=== PATIENT | male | born 1960 | race Caucasian/White ===

== ENCOUNTER → 2017-01-15 | Outpatient (CLI) | payer OTHER ==
[~2017-01-15] MED LIST: APIX1TAB3 PO; HYDR-3419 PO; PRT40 PO
[2017-01-15 12:46] LABS: AST/SGOT 24 U/L (15-37); BLOOD UREA NITROGEN 14 mg/dl (7-18); BUN/CREATININE RATIO 14.8 (10-20); CALCIUM 8.4 mg/dl (8.5-10.1); CARBON DIOXIDE 32 mmol/L (21-32); CHLORIDE 103 mmol/L (98-107); CREATININE 0.95 mg/dl (0.60-1.40); GLUCOSE 93 mg/dl (70-99); POTASSIUM 4.2 mmol/L (3.5-5.1); SODIUM 140 mmol/L (136-145)
[2017-01-15 12:54] LABS: ALB/GLOB RATIO 1.2 (0.9-2); ALKALINE PHOSPHATASE 72 U/L (45-117); ALT/SGPT 47 U/L (12-78); CHOLESTEROL 192 mg/dl (0-200); CHOLESTEROL/HDL RATIO 3.5; HDL CHOLESTEROL 55 mg/dl; LDL CHOLESTEROL CALCULATED 115 mg/dl; TRIGLYCERIDES 108 mg/dl (0-150); VERY LOW DENSITY LIPOPROT CALC 22 mg/dl
== END | disposition home or self-care (01) ==
LOC: C.LABPVFM 09:56
PROVIDERS: ATTEND Nurse Practitioner Family
DX: E78.5 Hyperlipidemia, unspecified (principal)

== ENCOUNTER → 2017-08-07 | Outpatient (CLI) | payer OTHER ==
[2017-08-07 13:21] LABS: ALT/SGPT 55 U/L (12-78); BLOOD UREA NITROGEN 17 mg/dl (7-18); BUN/CREATININE RATIO 17.2 (10-20); CALCIUM 8.9 mg/dl (8.5-10.1); CARBON DIOXIDE 29 mmol/L (21-32); CHLORIDE 104 mmol/L (98-107); CHOLESTEROL 209 mg/dl (0-200); CREATININE 0.97 mg/dl (0.60-1.40); GLUCOSE 94 mg/dl (70-99); POTASSIUM 4.1 mmol/L (3.5-5.1); SODIUM 139 mmol/L (136-145)
[2017-08-07 13:30] LABS: ESTIMATED AVERAGE GLUCOSE 117 mg/dl; HA1C FLAG Normal (Normal)
[2017-08-07 14:03] LABS: ALKALINE PHOSPHATASE 82 U/L (45-117); AST/SGOT 30 U/L (15-37); CHOLESTEROL/HDL RATIO 3.2; HDL CHOLESTEROL 65 mg/dl; LDL CHOLESTEROL CALCULATED 121 mg/dl; TRIGLYCERIDES 117 mg/dl (0-150); VERY LOW DENSITY LIPOPROT CALC 23 mg/dl
== END | disposition home or self-care (01) ==
LOC: C.LABPVFM 09:19
PROVIDERS: ATTEND Nurse Practitioner Family
DX: E78.5 Hyperlipidemia, unspecified (principal); R79.89 Other specified abnormal findings of blood chemistry; R73.03 Prediabetes

== ENCOUNTER → 2018-03-09 | Outpatient (CLI) | payer OTHER ==
[~2018-03-09] MED LIST changes: +OPTIRAY 320 IV PRN
--- NOTE | 2018-03-09 11:35 | DIAGNOSTIC IMAGING REPORT ---
CT ANGIOGRAM OF THE CHEST CLINICAL HISTORY: Cough, chest pain, shortness of breath. COMPARISON STUDY: December 2015 , chest x-ray dated 03/09/2018 TECHNIQUE: Following the IV administration of 113 mL of Optiray-320, CT angiogram of the thorax was performed from the thoracic inlet to the lung bases utilizing the pulmonary embolus protocol. Images are reviewed in the axial, sagittal, and coronal planes. IV contrast was administered without complication. MIP imaging was performed. A dose lowering technique was utilized adhering to the principles of ALARA. CT DOSE: 743.90 mGy.cm FINDINGS: There are mildly enlarged mediastinal and hilar lymph nodes, similar to the preceding examination. There was no evidence of thoracic aortic dilatation. There were no pulmonary artery filling defects to indicate acute pulmonary embolism. No pleural effusions are visualized. There is mild respiratory motion artifact. There is no focal pulmonary consolidation to indicate a pneumonia. There is a stable right lower lobe perifissural nodule of doubtful clinical significance. IMPRESSION: 1. No evidence of acute pulmonary embolism 2. Mild mediastinal and hilar lymphadenopathy, unchanged the preceding study 3. No evidence of focal pulmonary consolidation Electronically signed by: Víctor Klein M.D. 03/09/2018 11:34 AM Dictated Date/Time: 03/09/2018 11:30 AM
== END | disposition home or self-care (01) ==
LOC: C.CTS 10:34
PROVIDERS: ATTEND Physician Assistant
DX: R05 Cough (principal); R09.02 Hypoxemia; R06.02 Shortness of breath

== ENCOUNTER → 2018-03-09 | Outpatient (CLI) | payer OTHER ==
[~2018-03-09] MED LIST changes: -OPTIRAY 320 IV PRN
--- NOTE | 2018-03-09 10:51 | DIAGNOSTIC IMAGING REPORT ---
TWO VIEW CHEST CLINICAL HISTORY: Cough. FINDINGS: PA and lateral chest radiographs are correlated with chest CT dated 12/28/2015. The heart is top normal for projection. Mild emphysema is suspected and chronic interstitial thickening is similar to previous. There is bibasilar atelectasis, left greater than right. No pleural effusion is identified. There is no pneumothorax. The bony thorax appears intact. IMPRESSION: 1. Suspect mild emphysematous change. 2. No airspace consolidation or pleural effusion is identified. Electronically signed by: Arsh Garcia M.D. 03/09/2018 10:49 AM Dictated Date/Time: 03/09/2018 10:47 AM
== END | disposition home or self-care (01) ==
LOC: C.RAD1850 09:57
PROVIDERS: ATTEND Physician Assistant
DX: R06.02 Shortness of breath (principal); R05 Cough

== ENCOUNTER → 2018-03-11 | Outpatient (CLI) | payer OTHER ==
--- NOTE | 2018-03-12 06:04 | SPLIT NIGHT TECHNICIAN REPORT ---
[facility] Split Night Polysomnogram - Plastic Surgery Coordinator Report Study date: 03/11/2018 Referring Physician: Beth Navarro PA-C, PA-C Name: CLARE HORTON Maria Dolores Plastic Surgery Coordinator: HEIDI Long. Date of : 1960 Height: 57 years, Height 6' 1" Sex: Male Weight: 285 lbs Age: 57 BMI: Medications: 37.6 PANTOPRAZOLE 40 MG, CYCLOBENZAPRINE 10 MG, HYDROCODONE-ACETAMINOPHEN 5-325 MG, TRAMADOL 50 MG Patient History 57 yr-old male here for a baseline study. He has a history of excessive daytime sleepiness, coughing, and shortness of breath. His [place] scale is 17. The test was started on room air. ETCO2 testing was not utilized during this study. Room 3 Parameters Monitored NPSG: E1-M2, E2-M1, Fp1-M2, Fp2-M1, F3-M2, F4-M2, F4-M1, C3-M2, C4-M2, C4-M1, O1-M2, O2-M2, O2-M1, T3-M2, T4-M1, P3-M2, P4-M1, CHIN1, CHIN2, HR, EKG, Legs, PFLOW, SNOR, FLOW, CFLOW, Tidal Volume, THOR, ABDO, SpO2, PLTH, CPRESS, ETCO2 Wave, ETCO2, pH SLEEP SUMMARY DATA DIAGNOSTIC TREATMENT Lights Out: 9:36:31 PM 12:34:31 AM Lights On: 12:17:31 AM 5:27:01 AM Total Recording Time (TRT): 161.0 min. 292.5 min. Total Sleep Time (TST): 127.5 min. 260.0 min. NREM Time: 127.5 min. 200.5 min. REM Time: 0.0 min. 59.5 min. Sleep Period Time (SPT): 144.0 min. 286.0 min. Sleep Efficiency (SE): 79 % 89 % Sleep Latency: 17.0 min. 3.5 min. Arousal Index: 104.9 25.8 PAP Treatment Levels: 4, 6, 8, 10, 12, 14, 16/12, 17/12, 18/12, 19/12, 20/13, 21/14 * Optimal Pressure(s) SLEEP STAGING DATA DIAGNOSTIC TREATMENT Duration (min) TST % Duration (min) TST % Stage Wake: 33.5 min. -- 32.5 min. -- WASO: 16.5 min. -- 26.0 min. -- NREM: 127.5 min. 100 % 200.5 min. 77 % Stage N1: 102.0 min. 80 % 52.5 min. 20 % Stage N2: 25.5 min. 20 % 148.0 min. 57 % Stage N3: 0.0 min. 0 % 0.0 min. 0 % REM: 0.0 min. 0 % 59.5 min. 23 % POSITIONAL DATA Event Count Index Event Count Index Supine: 262 123 207 47.8 Supine NREM: 262 123.3 183 54.8 Supine REM: N/A N/A 24 24 Non-Supine: N/A N/A N/A N/A Non-Supine NREM: N/A N/A N/A N/A Non-Supine REM: N/A N/A N/A N/A AROUSAL SUMMARY DATA: Event Count Index Event Count Index Apnea Arousals: 134 80.9 7 4.2 Hypopnea Arousals: 71 33.4 61 14.1 Snore Arousals: 6 2.8 14 3.2 PLM Arousals: 0 0.0 1 0.2 Non-Specific Arousals: 12 5.6 22 5.1 Total Arousals: 223 104.9 112 25.8 MYOCLONUS (PLM) Event Count Index Event Count Index PLM: 0 0.0 49 11.3 PLM AROUSAL: 0 0.0 1 0.2 PLM W/O AROUSAL 0 0.0 48 11.1 PLM W/RESP EVENT 0 0.0 0 0.0 MYOCLONUS (PLM) Event Count Index Event Count Index LM: 2 20.7 47 10.8 LM AROUSAL: 2 0.9 4 0.9 LM W/O AROUSAL LM W/RESP EVENT LM NON SPECIFIC 33 15.5 84 19.4 HEART RATE DATA DIAGNOSTIC TREATMENT Sleep (bpm): 87 90 REM (bpm): N/A 79 NREM (bpm): 86 85 Tachycardia Count: 0 0 Tachycardia Duration: 0.00 0 Bradycardia Count: 0 0 Bradycardia Duration: 0.00 0 DIAGNOSTIC PORTION TREATMENT PORTION RESPIRATORY DATA Event Count Index Event Count Index AHI: -- 123.3 -- 47.8 RDI: -- 123.3 -- 48 Obstructive Apnea: 172 80.9 13 3.0 Central Apnea: 0 0.0 4 0.9 Mixed Apnea: 0 0.0 1 0.2 Hypopnea: 90 42.4 189 43.6 RERA: 0 0.0 0 0.0 Total Apneas: 172 80.9 18 4.2 RESPIRATORY DATA REM NREM SLEEP REM NREM SLEEP Supine Position: Obstructive Apneas: N/A 172 172 0 13 13 Central Apneas: N/A 0 0 0 4 4 Mixed Apneas: N/A 0 0 0 1 1 Hypopneas: N/A 90 90 24 165 189 RERA N/A 0 0 0 0 0 Total Supine Events: N/A 262 262 24 183 207 Supine AHI: N/A 123.3 123 24 54.8 47.8 Supine RDI: N/A 123.3 123.3 24.2 54.8 47.8 REM NREM SLEEP REM NREM SLEEP Non-Supine Position: Obstructive Apneas: N/A N/A N/A N/A N/A N/A Central Apneas: N/A N/A N/A N/A N/A N/A Mixed Apneas: N/A N/A N/A N/A N/A N/A Hypopneas: N/A N/A N/A N/A N/A N/A RERA N/A N/A N/A N/A N/A N/A Total Supine Events: N/A N/A N/A N/A N/A N/A Supine AHI: N/A N/A N/A N/A N/A N/A Supine RDI: N/A N/A N/A N/A N/A N/A OXYGEN DESTAURATION DATA: Event Count Index Event Count Index REM Desaturations: N/A N/A 55 55.5 NREM Desaturations: 202 95.1 225 67.3 SNORE DATA DIAGNOSTIC TREATMENT Snore Time: 16.9 12:38:01 AM Snore TST%: 6 5 Snore Arousal Count: 6 14 Snore Arousal Index: 2.8 3.2 Desaturation Event Summary: Minimum %SpO2 Event Count Mean/Min/Max Duration(sec.) Desaturation Index % Time In Bed > 90 263 23.8 / 5.0 / 59.3 277.0 13.1 86 - 90 300 19.5 / 4.3 / 58.5 97.7 42.5 81 - 85 64 18.0 / 5.8 / 60.0 28.4 31.2 76 - 80 3 28.3 / 18.8 / 46.0 5.8 7.2 71 - 75 3 31.3 / 19.5 / 46.0 21.3 2.0 66 - 70 3 27.6 / 5.0 / 49.5 49.2 0.8 61 - 65 2 7.0 / 5.0 / 9.0 33.3 0.8 56 - 60 8 21.4 / 8.0 / 43.3 103.7 1.1 51 - 55 4 26.9 / 16.8 / 43.3 63.0 0.9 < 50 0 N/A 0.0 0.3 OXYGEN SATURATION DATA DIAGNOSTIC TREATMENT SpO2 Mean Sleep: 86 % 84 % SpO2 Mean REM: N/A % 79 % SpO2 Mean NREM: 86 % 85 % SpO2 Minimum Sleep: 76 % 44 % SpO2 Minimum REM: N/A % 44 % SpO2 Minimum NREM: 76 % 64 % Time Below 90% (TST): 109.5 212.6 Time Below 88% (TST): 86.6 177.8 Total REM NREM Awake <50% 1.5 min. 1.5 min. 0.0 min. 0.0 min. 51 - 60% 8.4 min. 8.0 min. 0.0 min. 0.5 min. 61 - 70% 7.3 min. 5.7 min. 1.5 min. 0.0 min. 71 - 80% 39.6 min. 3.1 min. 36.0 min. 0.5 min. 81 - 90% 319.5 min. 38.0 min. 248.2 min. 33.3 min. 91 - 100% 57.0 min. 3.2 min. 40.6 min. 13.2 min. Average 85 79 86 89 Minimum SpO2 44 44 64 53 Desaturation Event Index 68.1 55.5 78.1 30.9 # Desat. Events below 89% 506 54 422 30 Time(%) with Saturation below 89% 72.9 11.3 57.2 4.4 Time(min.) with Saturation below 89% 315.8 48.9 247.7 19.1 Recording Plastic Surgery Coordinator Comments: Mr. Horton slept only in the supine position. Cardiac arrhythmias were noted (please refer to the printout). No bruxism noted. Snoring was noted and scored as a 3-4 on a scale of 1 through 5. (0=no snoring, 5=snoring loud enough to be heard through a closed door or down the [address] way). At 12:34, he met specific Split-Night criteria during the diagnostic portion of this study. CPAP was initiated at +4 CMH2O and up-titrated to a level of +14 CMH2O, Cflex 2. He continued to have obstructive events, and due to the higher pressure, he was then switched to BiPAP at +16/12 and up-titrated to a level of +21/14 CMH2O BiFlex 2. A Quattro Air full face mask size large from [employer] was used during titration. He awoke to use the restroom three times during the night. Mr. Horton stated that he slept about the same as usual. The final report will be interpreted and signed by a sleep physician. The completed physician report will then be placed in the patient medical record. Therapy Event: Therapy (cm H20) 0 4 6 8 10 12 14 Total Time at Pressure (min.) 161.0 6.8 10.5 14.0 15.9 32.1 38.0 TST at Pressure (min.) 127.5 3.3 10.5 14.0 15.9 29.6 37.0 # Periods 1 1 1 1 1 1 1 Sleep Onset (min.) 17.0 3.5 0.0 0.0 0.0 0.0 0.0 REM Onset (min.) N/A N/A N/A N/A N/A 4.7 N/A Sleep Efficiency % 79 48 100 100 100 92 97 Wakefulness (%) 20.8 51.6 0.0 0.0 0.0 7.8 2.6 Wakefulness (min.) 33.5 3.5 0.0 0.0 0.0 2.5 1.0 NREM 1 (%) 63.4 48.4 100.0 54.7 4.8 23.6 22.8 NREM 1 (min.) 102.0 3.3 10.5 7.7 0.8 7.6 8.7 NREM 2 (%) 15.8 0.0 0.0 45.3 95.2 12.5 74.6 NREM 2 (min.) 25.5 0.0 0.0 6.3 15.2 4.0 28.3 NREM 3 (%) 0.0 0.0 0.0 0.0 0.0 0.0 0.0 NREM 3 (min.) 0.0 0.0 0.0 0.0 0.0 0.0 0.0 REM (%) 0.0 0.0 0.0 0.0 0.0 56.1 0.0 REM (min.) 0.0 0.0 0.0 0.0 0.0 18.0 0.0 # Arousals 223 6 17 17 4 25 17 Arousal Index 104.9 109.7 96.8 72.7 15.1 50.7 27.6 # Snore 565 10 28 46 41 44 49 Snore Index 265.9 182.8 159.4 196.8 154.5 89.3 79.4 AHI 123.3 146.2 113.8 98.4 94.2 48.7 43.8 AHI Supine 123.3 146.2 113.8 98.4 94.2 48.7 43.8 AHI Non-Supine N/A N/A N/A N/A N/A N/A N/A NREM AHI 123.3 146.2 113.8 98.4 94.2 67.5 43.8 REM AHI N/A N/A N/A N/A N/A 36.7 N/A RDI 123.3 146.2 113.8 98.4 94.2 48.7 43.8 # Obstructive 172 1 1 1 0 0 10 # Central Ap 0 0 0 0 0 1 3 # Mixed 0 0 1 0 0 0 0 # Hypopneas 90 7 18 22 25 23 14 RERAS 0 0 0 0 0 0 0 Total Respiratory Events 262 8 20 23 25 24 27 Time Below SpO2 89.00% (min.) 99.6 2.1 6.1 9.5 11.9 27.0 26.2 Mean NREM SpO2 (%) 86 87 87 84 82 82 87 Mean REM SpO2 (%) N/A N/A N/A N/A N/A 61 N/A Mean Sleep SpO2 (%) 86 87 87 84 82 69 87 Min NREM SpO2 (%) 76 80 78 71 68 64 80 Min REM SpO2 (%) N/A N/A N/A N/A N/A 44 N/A Position Supine (min.) 127.5 3.3 10.5 14.0 15.9 29.6 37.0 Position Non-supine (min.) 0.0 0.0 0.0 0.0 0.0 0.0 0.0 LM Index Sleep 20.7 0.0 22.8 8.6 22.6 12.2 13.0 LM Index NREM 20.7 0.0 22.8 8.6 22.6 10.4 13.0 LM Index REM N/A N/A N/A N/A N/A 13.3 N/A Mean Heart Rate (bpm) 87 91 89 89 88 91 91 Min Heart Rate (bpm) 57 86 84 73 80 53 83 Therapy (cm H20) 09/10 17/12 18/12 19/12 20/13 21/14 Total Time at Pressure (min.) 28.9 56.0 16.4 26.5 25.5 21.8 TST at Pressure (min.) 26.9 37.3 15.6 25.5 25.5 18.8 # Periods 1 1 1 1 1 1 Sleep Onset (min.) 0.0 0.0 0.8 0.0 0.0 0.0 REM Onset (min.) N/A 10.8 13.3 N/A 22.8 0.0 Sleep Efficiency % 93 66 95 96 100 86 Wakefulness (%) 6.9 33.5 4.6 3.8 0.0 13.7 Wakefulness (min.) 2.0 18.7 0.8 1.0 0.0 3.0 NREM 1 (%) 3.5 12.5 19.2 10.8 0.0 0.0 NREM 1 (min.) 1.0 7.0 3.1 2.9 0.0 0.0 NREM 2 (%) 89.6 23.7 57.9 85.5 89.5 0.0 NREM 2 (min.) 25.9 13.3 9.5 22.7 22.8 0.0 NREM 3 (%) 0.0 0.0 0.0 0.0 0.0 0.0 NREM 3 (min.) 0.0 0.0 0.0 0.0 0.0 0.0 REM (%) 0.0 30.4 18.3 0.0 10.5 86.3 REM (min.) 0.0 17.0 3.0 0.0 2.7 18.8 # Arousals 4 12 7 1 1 1 Arousal Index 8.9 19.3 26.8 2.4 2.4 3.2 # Snore 42 44 42 74 16 1 Snore Index 93.7 70.9 161.0 173.9 37.6 3.2 AHI 17.8 45.1 49.8 47.0 21.2 6.4 AHI Supine 17.8 45.1 49.8 47.0 21.2 6.4 AHI Non-Supine N/A N/A N/A N/A N/A N/A NREM AHI 17.8 59.2 56.9 47.0 18.4 N/A REM AHI N/A 28.2 20.0 N/A 44.8 6.4 RDI 17.8 45.1 49.8 47.0 21.2 6.4 # Obstructive 0 0 0 0 0 0 # Central Ap 0 0 0 0 0 0 # Mixed 0 0 0 0 0 0 # Hypopneas 8 28 13 20 9 2 RERAS 0 0 0 0 0 0 Total Respiratory Events 8 28 13 20 9 2 Time Below SpO2 89.00% (min.) 22.7 32.3 11.9 19.1 18.9 9.5 Mean NREM SpO2 (%) 85 86 85 85 87 N/A Mean REM SpO2 (%) N/A 85 83 N/A 86 89 Mean Sleep SpO2 (%) 85 86 85 85 87 89 Min NREM SpO2 (%) 78 79 77 73 77 N/A Min REM SpO2 (%) N/A 80 78 N/A 83 83 Position Supine (min.) 26.9 37.3 15.6 25.5 25.5 18.8 Position Non-supine (min.) 0.0 0.0 0.0 0.0 0.0 0.0 LM Index Sleep 64.7 51.5 3.8 4.7 9.4 6.4 LM Index NREM 64.7 65.2 4.7 4.7 10.5 N/A LM Index REM N/A 35.3 0.0 N/A 0.0 6.4 Mean Heart Rate (bpm) 93 92 89 88 88 85 Min Heart Rate (bpm) 86 72 83 80 71 77 CPAP REPORT Therapy Detail Time / Page # Comment CPAP 4 cm H2O Full Face Mask Flex Pressure Relief Humidifier on 12:34:04 AM / pg. 438 HE HAS HAD OVER 2 HOURS OF SLEEP AND HIS AHI IS ABOVE 40. CPAP 6 cm H2O Full Face Mask Flex Pressure Relief Humidifier on 12:41:18 AM / pg. 452 INCREASED FOR APNEAS CPAP 8 cm H2O Full Face Mask Flex Pressure Relief Humidifier on 12:51:50 AM / pg. 473 INCREASED FOR APNEAS AND HYPOPNEAS CPAP 10 cm H2O Full Face Mask Flex Pressure Relief Humidifier on 1:05:52 AM / pg. 501 INCREASED FOR APNEAS AND HYPOPNEAS CPAP 12 cm H2O Full Face Mask Flex Pressure Relief Humidifier on 1:21:47 AM / pg. 533 INCREASED FOR EVENTS CPAP 14 cm H2O Full Face Mask Flex Pressure Relief Humidifier on 1:53:51 AM / pg. 597 INCREASED FOR HYPOPNEAS BiLevel 16/12 cm H2O Full Face Mask Flex Pressure Relief Humidifier on 2:31:52 AM / pg. 673 DUE TO HIGHER PRESSURES, CHANGED TO BIPAP TO CONTINUE TO TREAT FOR HYPOPNEAS BiLevel 17/12 cm H2O Full Face Mask Flex Pressure Relief Humidifier on 3:00:45 AM / pg. 731 INCREASED FOR HYPOPNEAS BiLevel 18/12 cm H2O Full Face Mask Flex Pressure Relief Humidifier on 3:56:46 AM / pg. 843 INCREASED FOR MORE HYPOPNEAS BiLevel 19/12 cm H2O Full Face Mask Flex Pressure Relief Humidifier on 4:13:10 AM / pg. 876 INCREASED AGAIN FOR HYPOPNEAS BiLevel 20/13 cm H2O Full Face Mask Flex Pressure Relief Humidifier on 4:39:42 AM / pg. 929 INCREASED AGAIN FOR HYPOPNEAS AND INCREASED THE EPAP TO KEEP THE PRESSURE DIFFERENTIAL FOR GETTING TOO FAR APART BiLevel 21/14 cm H2O Full Face Mask Flex Pressure Relief Humidifier on 5:05:12 AM / pg. 980 INCREASED FOR MORE HYPOPNEAS
--- NOTE | 2018-03-15 16:59 | POLYSOMNOGRAPH REPORT ---
SLEEP STUDY REPORT DATE OF STUDY: 03/11/2018. CLINICAL DATA: The patient is a 57-year-old male with symptoms including shortness of breath and excessive daytime somnolence. His [place] sleepiness scale score is 17 out of a possible 24. His BMI is 37.6. This was an in-lab overnight split study. SLEEP ARCHITECTURE: The study was divided into a diagnostic and treatment portion, using first nasal CPAP and then nasal BiPAP during the treatment portion. During the diagnostic portion, the sleep period time was 144 minutes. The total sleep time was 127.5 minutes. The sleep efficiency was modestly reduced to 79%. The sleep latency was 17 minutes. Sleep consisted of stage N1 80%, stage N2 20%, stage N3 0%, stage REM 0%. During the treatment portion of the study, the sleep period time was 286 minutes. The total sleep time was 260 minutes. The sleep efficiency was 89%, which is borderline normal. The sleep latency was 3.5 minutes. Sleep consisted of stage N1 20%, stage N2 57%, stage N3 0%, stage REM 23%. AROUSAL DATA: During the diagnostic portion of the study, the patient had a total of 223 arousals including 134 apnea arousals, 71 hypopnea arousals, 6 snoring arousals, and 12 nonspecific arousals. The arousal index is severely elevated at 104.9. During the treatment portion of the study, the patient had a total of 112 arousals including 7 apnea arousals, 61 hypopnea arousals, 14 snoring arousals, 1 PLM arousal, and 22 nonspecific arousals. The arousal index was 25.8. PLM DATA: During the diagnostic portion of the study, there were no limb movements. During the therapeutic portion of the study, there were 49 periodic limb movements for a PLM index of 11.3. There was only 1 arousal associated with limb movements for PLM arousal index of 0.2. EKG: The underlying cardiac rhythm was normal sinus. The patient had at times frequent extrasystoles. Some were clearly supraventricular and others likely were ventricular. The cardiac rates averaged 87 beats per minute during the diagnostic portion and 90 beats per minute during the treatment portion. RESPIRATORY DATA: During the diagnostic portion of the study, the patient had a total of 262 respiratory events including 172 obstructive apneas and 90 hypopneas. The apnea-hypopnea index was severely elevated at 123.3. This reflects severe sleep apnea. During the treatment portion of the study when the patient was treated with CPAP and then BiPAP, there was a total of 207 respiratory events including 13 obstructive apneas, 4 central apneas, 1 mixed apnea, and 189 hypopneas. Hypopneas were scored according to the 4% desaturation rule. The apnea-hypopnea index was 47.8. At the final pressure of 21/14, his apnea-hypopnea index was only 6.4. OXIMETRY DATA: During the diagnostic portion of the study, the mean saturation was 86%. The minimum saturation was 76%. There was a total of 86.6 minutes with saturations less than 88%. During the treatment portion of the study, the mean saturation was 84%. The minimum saturation was 44%. There was a total of 177.8 minutes with saturations less than 88%. [employer]ING [employer]ERKS COMMENTS: Mr. Horton slept only in the supine position. Cardiac arrhythmias were noted. No bruxism noted. Snoring was noted and scored as a 3-4 on a scale of 1 through 5. At 12:34 a.m., he met specific split-night criteria during the diagnostic portion of the study. CPAP was initiated at 4 cm and up titrated to a level of 14 cm C-Flex 2. He continued to have obstructive events, and due to the higher pressure, he was switched to BiPAP at 16/12 and up titrated to a level of 21/14. Bi-Flex 2 was added. A Quattro Air full face mask size large from [employer] was used during the titration. He awakened to use the restroom three times during the night. He stated that he slept about the same as usual. IMPRESSION: 1. Severe obstructive sleep apnea - improved with BiPAP 21/14 with Bi-Flex 2. 2. Cardiac arrhythmia. COMMENTS: The patient has very severe sleep apnea. This was treated with CPAP and then BiPAP. His events were nearly resolved at the end of the study. He persisted with hypoxia throughout, however. Thus, it is recommended that 3 liters of oxygen be instilled into the BiPAP. As noted, a [employer] Quattro Air full face mask was used and presumptively, that mask was given to the patient after his study. RECOMMENDATIONS: 1. It is advised that he be started on BiPAP 21/14 with Bi-Flex 2. 2. It is advised that oxygen 3 liters be instilled into BiPAP. 3. Weight loss is advised in light of the elevation of body mass index at 37.6. 4. It is suggested that the patient try to avoid sleeping in the supine position. MTDD
== END | disposition home or self-care (01) ==
LOC: C.NEUR 21:00
PROVIDERS: ATTEND Physician Assistant
DX: G47.33 Obstructive sleep apnea (adult) (pediatric) (principal); I49.9 Cardiac arrhythmia, unspecified